=== PATIENT | male | born 1935 | race Caucasian/White ===

== ENCOUNTER 2020-01-17 15:38 | Emergency (ER) | payer MEDICARE, BC ==
[~2020-01-17] VITALS: Ht 162.6 cm; Wt 81.8 kg
[~2020-01-17 15:38] MED LIST: AMITRIPTYLINE H50 M1 PO; ASPIRIN 32325 MG/TAB PO; BACTRIM DS 8001 TAB PO; C-Q 10; CARDI-OMEGA1000 MG PO; CELEBREX; CENTRUM VITAMIN PO; CO ENZYME Q-1050 MG PO; COUMADIN 2MG2 MG/TAB PO; COUMADIN 4MG4 MG/TAB PO; COUMADIN4 MG PO; CQ 10; DUO-KAPS1 CAP PO; EPA FISH OIL1000 MG PO; FLEXERIL 1010 MG/TAB PO; FLOMAX 0.40.4 MG/CAP PO; HALCION 0.0.125 MG/T PO; HALCION0.25 MG PO; IMODIUM 2MG CAPS2 MG PO; IRON324 M1 PO; K-DUR 2020 MEQ PO; LANOXIN 0.25M0.25 MG PO; LASIX 20MG TABL20 MG PO; LASIX 40MG TABL40 MG PO; LIPITOR 40MG TA40 MG PO; MIRTAZAPINE7.5 MG PO; MULTIPLE VITAMI1 T14 PO; NORCO 325 MG-51 TAB PO; PHENTERMINE15 MG PO; PLAVIX 75MG TAB75 MG PO; PRINIVIL5 MG PO; PYRIDIUM200 M1 PO; SINGULAIR 110 MG/TAB PO; TIAZAC180 MG PO; TOPROL XL 50MG50 MG PO; TOPROL XL25 MG PO; VESICARE; VITAMIN C500 MG PO; VITAMIN D1000 IU PO; ZANAFLEX CAPSULE4 MG PO; ZOCOR 40MG40 MG PO; ZOCOR40 MG PO
[2020-01-17 15:48] VITALS: TEMP 98.3
[2020-01-17 16:27] LABS: BASO # 0.1 (0.0-0.2); BASO % 0.8 % (0.0-2.0); EOS # 0.3 (0.0-0.7); GRAN # 5.1 (1.4-6.5); HEMATOCRIT 43.1 % (42.0-52.0); HEMOGLOBIN 13.5 g/dl (13.5-18.0); LYMPH # 0.9 (1.2-3.4); LYMPH % 12.6 % (20.0-51.0); MEAN CELL VOLUME 94 fl (80.0-100.0); MEAN CORPUSCULAR HEMOGLOBIN 29 pg (27.0-31.0); MEAN CORPUSCULAR HGB CONC 31 g/dl (33.0-37.0); MEAN PLATELET VOLUME 8.7 fl (7.4-10.4); MONO # 0.7 (0.1-0.6); MONO % 10.2 % (1.7-9.3); PLATELET COUNT 234 K/mm3 (130-400); REDCELL DISTRIBUTION WIDTH-CV 14.7 % (11.5-14.5)
[2020-01-17 16:31] LABS: INR 1.9 (0.8-3.0); PROTHROMBIN TIME 21.5 SECONDS (9.7-12.8)
[2020-01-17 16:36] LABS: CALCIUM 8.9 mg/dL (8.4-10.2); CREATININE, serum 1.11 (0.66-1.25); POTASSIUM 4.5 mmol/L (3.4-5.0)
[2020-01-17 17:07] VITALS: BP 131/69; PULSE 89
== END 2020-01-17 17:07 | disposition home or self-care (01) ==
LOC: COL.ER 15:38
PROVIDERS: Emergency Medicine
DX: K62.5 Hemorrhage of anus and rectum (principal); I50.9 Heart failure, unspecified; I48.91 Unspecified atrial fibrillation; Z79.01 Long term (current) use of anticoagulants; Z79.82 Long term (current) use of aspirin

== ENCOUNTER → 2021-05-30 | Outpatient (CLI) | payer MEDICARE, BC | LOC: COL.RAD 13:30 | DX: R13.12 Dysphagia, oropharyngeal phase (principal) ==

== ENCOUNTER 2021-07-10 14:30 | Outpatient (RCR) | payer MEDICARE, BC | END 2021-07-21 | disposition home or self-care (01) | LOC: WSST | DX: R13.12 Dysphagia, oropharyngeal phase (principal) ==

== ENCOUNTER 2021-07-31 14:00 | Outpatient (RCR) | payer MEDICARE, BC | END 2021-08-21 | disposition home or self-care (01) | LOC: WSST | DX: R13.12 Dysphagia, oropharyngeal phase (principal) ==

== ENCOUNTER 2022-02-28 11:13 | Day surgery (SDC) | payer MEDICARE, BC ==
[2022-02-28] VITALS (13 sets, daily range): BP systolic 80–127; BP diastolic 43–91; PULSE 49–71; TEMP 97.6–98.4
[~2022-02-28] VITALS: Wt 92.0 kg
[~2022-02-28 11:13] MED LIST changes: -CQ 10; -LASIX 20MG TABL20 MG PO; +THE MEDICINE S200 M2 PO
[2022-02-28 12:14] LABS: HEMATOCRIT 40.2 % (42.0-52.0); HEMOGLOBIN 12.8 g/dl (13.5-18.0); MEAN CELL VOLUME 90 fl (80.0-100.0); MEAN CORPUSCULAR HEMOGLOBIN 29 pg (27-31); MEAN CORPUSCULAR HGB CONC 32 g/dl (33.0-37.0); MEAN PLATELET VOLUME 8.7 fl (7.4-10.4); PLATELET COUNT 272 K/mm3 (130-400); RED BLOOD COUNT 4.45 M/mm3 (4.20-5.60)
[2022-02-28 12:15] LABS: INR 1.2 (0.8-3.0); PROTHROMBIN TIME 13.6 SECONDS (9.7-12.8)
[2022-02-28 12:17] LABS: PARTIAL THROMBOPLASTIN TIME 44.4 SECONDS (26.0-37.0)
[2022-02-28 12:21] LABS: CALCIUM 9.1 mg/dL (8.4-10.2); CREATININE, serum 1.57 mg/dL (0.72-1.25); POTASSIUM 4.5 mmol/L (3.5-4.5)
[2022-02-28] MEDS ORDERED: PEPCID 20MG TAB20 MG PO (12:50)
[2022-02-28] MEDS ORDERED: CELEXA 20MG20 MG/TAB PO (12:50)
--- NOTE | 2022-02-28 15:04 | NUR ---
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 VSS. Patient A&O. Dynamap in use for post op vitals. Surgical site CDI. Call light in reach. Fall precautions in place.
--- NOTE | 2022-02-28 17:00 | NUR ---
Patient femoral site reassessed. Site has signs of small amount bleeding. 20ML of air reinserted into femstop. Site continues to be soft and free from hematoma. Oncoming nurse aware.
--- NOTE | 2022-02-28 18:00 | NUR ---
Admission paperwork completed. Allergies, pharmacy, and medications reviewed and updated. VSS. Patient A&O. Fluids running as ordered. Post op vitals being monitored. Patient on bedrest with HOB not exceeding 30 degrees. 20Ml of air released from femstop per protocol. Site is soft and free from hematoma. No s/s of bleeding or complications at this time. Call light in reach. Fall precautions in place.
--- NOTE | 2022-02-28 19:00 | NUR ---
DURING SHIFT REPORT WITH MARCELINA FRANCE IN THE ROOM THE PATIENT HAD BEEN SITTING UP AT APPROXIMATELY 90 DEGREE ANGLE. WHEN ASSESSING THE SITE, THE PATIENT HAD SOME DRAINAGE AND ACTIVE LEAKING FROM THE FEMORAL SITE. MARCELINA FRANCE REPLACED THE 20CC OF AIR SHE HAD REMOVED EARLIER, AND NOW 40CC AIR MAINTAINED IN THE FEMORAL SITE. NO OTHER CONCERNS AT THIS TIME. WILL CONTINUE TO MONITOR THE PATIENT CLOSELY. MARCELINA HELMS IS TRAINING WITH THIS RN TONIGHT AND WILL BE MANAGING CARES.
[2022-02-28] MEDS ORDERED: TYLENOL 325MG325 MG PO (19:46)
[2022-02-28] MEDS ORDERED: ANTI-DIARRHEAL2 MG PO (19:47)
[2022-02-28] MEDS ORDERED: REMERON30 MG PO (19:48)
--- NOTE | 2022-03-01 01:31 | NUR ---
PATIENT ALERT AND ORIENTED AT THIS TIME RESTING IN BED WATCHING TELEVISION. PATIENT IS AT BEDSIDE. PATIENT IS HAVING SLIGHT DRAINAGE AND 20 CC OF AIR PLACED BACK IN AGNIOSEAL AT THIS TIME. PATIENT DENIES PAIN AND FURTHER CONCERNS AT THIS TIME. CALL LIGHT IS WITHIN REACH OF PATIENT.
[2022-03-01 03:54] VITALS: BP 135/54; PULSE 60; TEMP 97.8
--- NOTE | 2022-03-01 05:23 | NUR ---
RESPIRATORY IN ROOM PERFORMING EKG AT THIS TIME. MEETA RT STATES PT WAS GAVE THEM A SCARE PATIENT WAS IN DEEP SLEEP AND HARD TO AROUSE. PATIENT AWAKENS TO THIS NURSE VOICE FOR INSPECTION OF ANGIOSEAL. NO ADDITIONAL DRAINAGE IS NOTED AT THIS TIME. PATIENT HAS 25 CC OF AIR REMAINING IN ANGIOSEAL. PATIENT IS AGAIN SLEEPING EVIDENCED BY HIS SNORING. NO SIGNS OR SYMPTOMS OF DISTRESS OR PAIN AT THIS TIME. CALL LIGHT IS WITHIN REACH OF PATIENT WELL PERSONAL BELONGINGS.
[2022-03-01 06:23] LABS: BASO # 0.1 K/mm3 (0.0-0.2); BASO % 0.6 % (0.0-2.0); EOS # 0.3 K/mm3 (0.0-0.7); GRAN # 7.6 K/mm3 (1.4-6.5); GRAN % 78.3 % (42.2-75.2); HEMATOCRIT 41.9 % (42.0-52.0); HEMOGLOBIN 13.1 g/dl (13.5-18.0); LYMPH # 0.9 K/mm3 (1.2-3.4); LYMPH % 8.8 % (20.0-51.0); MEAN CELL VOLUME 93 fl (80.0-100.0); MEAN CORPUSCULAR HEMOGLOBIN 29 pg (27-31); MEAN CORPUSCULAR HGB CONC 31 g/dl (33.0-37.0); MEAN PLATELET VOLUME 8.7 fl (7.4-10.4); MONO # 0.9 K/mm3 (0.1-0.6); MONO % 8.9 % (1.7-9.3); PLATELET COUNT 258 K/mm3 (130-400); RED BLOOD COUNT 4.53 M/mm3 (4.20-5.60); REDCELL DISTRIBUTION WIDTH-CV 15.1 % (11.5-14.5)
[2022-03-01 06:38] LABS: CALCIUM 8.9 mg/dL (8.4-10.2); CREATININE, serum 1.32 mg/dL (0.72-1.25); POTASSIUM 4.4 mmol/L (3.5-4.5)
[2022-03-01 08:39] VITALS: BP 130/58; PULSE 59; TEMP 98
[2022-03-01 08:41] VITALS: PULSE 62
[2022-03-01] MEDS ORDERED: PLAVIX 75MG TAB75 MG PO (09:32)
[2022-03-01] MEDS ORDERED: TOPROL XL 50MG50 MG PO (09:32)
[2022-03-01] MEDS ORDERED: LIPITOR 80MG80 MG PO (09:32)
[2022-03-01] MEDS ORDERED: ASPIRIN E.C. 8181 MG PO (09:33)
[2022-03-01] MEDS ORDERED: PRINIVIL5 MG PO (09:33)
[2022-03-01] MEDS ORDERED: JARDIANCE10 PO (09:34)
[2022-03-01] MEDS ORDERED: IMDUR 30MG30 MG/TAB PO (09:34)
--- NOTE | 2022-03-01 11:00 | NUR ---
sheet metal worker helper met with patient to complete intake. Upon entering room, patient's RN brings the patient his discharge paperwork. Patients Valeria ([phone]) contacted and notified that the patient is ready for discharge. Valeria reports that the patient does not have any home health services at this time. Patient will return back home later today with Valeria. Discharge plan: Home
[2022-03-01 11:40] VITALS: BP 126/50; PULSE 51; TEMP 98
--- NOTE | 2022-03-01 12:27 | NUR ---
Patient deemed fit for discharge. IV DC'd, catheter intact, no signs of phlebitis. Discharge education/instructions given. All questions answered. Scheduled medications given. Remainder of air taken out of femstop per protocol. Clean dressing place on groin site. Site is CDI, no s/s of bleeding or complications. Patient escorted from building via wheelchair escorted by [facility] Staff. transporting home. VSS. Patient A&O.
== END 2022-03-01 12:15 | disposition home or self-care (01) ==
LOC: COL.CAR 11:13 → MEDICAL 16:18 → COL.CAR 03-01 12:15
PROVIDERS: Internal Medicine Cardiovascular Disease
DX: I42.9 Cardiomyopathy, unspecified (principal); I25.10 Atherosclerotic heart disease of native coronary artery without angina pectoris; I25.84 Coronary atherosclerosis due to calcified coronary lesion; I25.82 Chronic total occlusion of coronary artery; I10 Essential (primary) hypertension; T82.858A Stenosis of other vascular prosthetic devices, implants and grafts, initial encounter; Z95.1 Presence of aortocoronary bypass graft; Z95.5 Presence of coronary angioplasty implant and graft
CPT/HCPCS: OP; A9270; C1725; C1760; C1769; C1874; C1887; C1894; C9600; J0583; J2250; J3010; Q9967

== ENCOUNTER → 2022-03-21 | Outpatient (RCR) | payer MEDICARE, BC ==
[~2022-03-21] MED LIST changes: +ANTI-DIARRHEAL2 MG PO; +ASPIRIN E.C. 8181 MG PO; +CELEXA 20MG20 MG/TAB PO; +IMDUR 30MG30 MG/TAB PO; +JARDIANCE10 PO; +LIPITOR 80MG80 MG PO; +PEPCID 20MG TAB20 MG PO; +REMERON30 MG PO; +TYLENOL 325MG325 MG PO
== END | disposition still patient (30) ==
LOC: COL.CR
DX: Z48.812 Encounter for surgical aftercare following surgery on the circulatory system (principal); Z95.5 Presence of coronary angioplasty implant and graft